=== PATIENT | female | born 1950 | race Caucasian/White ===

== ENCOUNTER → 2016-12-07 | Outpatient (CLI) | payer OTHER ==
[~2016-12-07] MED LIST: AMLO5TAB2 PO; ASPI-496 PO; ASPI-621 PO; CHOL100015 PO; CHRO200T9 PO; CYCL100C PO; CYCL1DRO EACHEYE; FISH400C3 PO; FURO-93 PO; HAIR, SKIN, NAILS PO; HYAL1CAP PO; HYDR-3241 PO; HYDR1TAB14 PO; LISI5TAB7 PO; LOSA25TA5 PO; MULT-516 PO; MULT-706 PO; OMEP20CA9 PO; PRAV10TA2 PO; PROM25SU34 RC; PROM25TA10 PO; PROM25VI5 PO; SENN1TAB67 PO; TIZA4CAP PO; UBID100C19 PO; VITA1TAB3 PO; VITAMIN PO; WARF5TAB PO; ZOLP10TA PO; [UNRECOGNIZED DRUG - OTHER] PO; magnesium PO
[2016-12-07 09:25] LABS: BLOOD UREA NITROGEN 27 mg/dL (7-18)
== END | disposition home or self-care (01) ==
LOC: LAB 08:37
PROVIDERS: ATTEND Internal Medicine
DX: Z01.818 Encounter for other preprocedural examination (principal)
CPT/HCPCS: 36415; 82565; 84520

== ENCOUNTER → 2016-12-10 | Outpatient (CLI) | payer OTHER ==
[~2016-12-10] MED LIST changes: +OMNIPAQUE 350 MG/ML, 100ML BOTTLE ONE
== END | disposition home or self-care (01) ==
LOC: RAD 11:24
PROVIDERS: ATTEND Internal Medicine
DX: R10.9 Unspecified abdominal pain (principal); Z94.0 Kidney transplant status
CPT/HCPCS: 74177; Q9967

== ENCOUNTER 2017-01-19 08:16 | Inpatient (IN) | payer OTHER ==
[2017-01-18 09:16] VITALS: BP 138/84
[2017-01-18 10:38] LABS: ASPARTATE AMINO TRANSFERASE 27 U/L (15-37); BLOOD UREA NITROGEN 33 mg/dL (7-18)
[~2017-01-19] VITALS: Ht 175.3 cm; Wt 79.6 kg
[~2017-01-19 08:16] MED LIST changes: -OMNIPAQUE 350 MG/ML, 100ML BOTTLE ONE
[2017-01-19] MEDS ORDERED: ALBUTEROL SULFATE 2.5 MG/3 ML NPPB PRN ×2 (08:30→17:30)
[2017-01-19] MEDS ORDERED: HYDROmorphone 1 MG/ML, 1ML IV PRN ×2 (08:30→17:30)
[2017-01-19] MEDS ORDERED: hydrALAzine 20 MG/ML, 1ML IV PRN ×2 (08:30→17:30)
[2017-01-19] MEDS ORDERED: OXYcodone 5 MG/5 ML ORAL.SOL UDC PO PRN ×2 (08:30→17:30)
[2017-01-19] MEDS ORDERED: LABETALOL 5MG/ML, 20ML IV PRN ×2 (08:30→17:30)
[2017-01-19] MEDS ORDERED: METOPROLOL 1 MG/ML, 5ML IV PRN ×2 (08:30→17:30)
[2017-01-19] MEDS ORDERED: ONDANSETRON 2MG/ML, 2ML IVPush PRN ×2 (08:30→17:30)
[2017-01-19] MEDS ORDERED: ACETAMINOPHEN 325 MG TABLET PO PRN (08:30)
[2017-01-19] MEDS ORDERED: LACTATED RINGERS 1,000 ML IV SCH (08:34)
[2017-01-19] MEDS ORDERED: ASPI-496 PO (08:50)
[2017-01-19] MEDS ORDERED: LOSA25TA5 PO (08:50)
[2017-01-19] MEDS ORDERED: SCOPOLAMINE PATCH, 1.5MG PATCH.TD72 TD ONE (09:00)
[2017-01-19] MEDS ORDERED: LIDOCAINE 1%, 2ML SQ PRN (09:00)
[2017-01-19] MEDS ORDERED: HYDROcodone/APAP 5/325 TABLET PO ONE (09:30)
[2017-01-19] MEDS ORDERED: FENTANYL PF 250 MCG/5ML ONE ×3 (09:57→16:32)
[2017-01-19] MEDS ORDERED: MIDAZOLAM 1 MG/ML, 2ML ONE ×3 (09:57→16:32)
[2017-01-19] MEDS ORDERED: GLYCOPYRROLATE 0.2MG/1ML ONE ×2 (10:23)
[2017-01-19] MEDS ORDERED: ETOMIDATE 20 MG/10 ML ONE (10:23)
[2017-01-19] MEDS ORDERED: PROPOFOL 10 MG/ML, 50ML ONE (10:23)
[2017-01-19] MEDS ORDERED: ROCURONIUM 10 MG/ML ONE (10:23)
[2017-01-19] MEDS ORDERED: METOPROLOL 1 MG/ML, 5ML ONE (10:23)
[2017-01-19] MEDS ORDERED: PROPOFOL 10 MG/ML, 20ML ONE (10:23)
[2017-01-19] MEDS ORDERED: ONDANSETRON 2MG/ML, 2ML ONE ×2 (10:23)
[2017-01-19] MEDS ORDERED: NEOSTIGMINE 1 MG/ML, 10ML ONE ×2 (10:23)
[2017-01-19] MEDS ORDERED: CEFOTETAN 1 GM ONE (10:23)
[2017-01-19] MEDS ORDERED: DEXAMETHASONE 4 MG/ML, 1ML ONE (10:23)
[2017-01-19] MEDS ORDERED: BUPIVACAINE/PF-EPI 0.5% 1:200K ONE (11:15)
[2017-01-19] MEDS ORDERED: BUPIVACAINE/PF-EPI 0.5% 1:200K INFIL ONE (11:41)
[2017-01-19] MEDS ORDERED: ACETAMINOPHEN 650 MG/20.3 ML UDC ONE (13:21)
[2017-01-19] MEDS ORDERED: OXYcodone 5 MG/5 ML ORAL.SOL UDC ONE (13:21)
[2017-01-19] MEDS ORDERED: FENTANYL PF 100 MCG/2ML ONE ×2 (13:21→13:48)
[2017-01-19] MEDS: FENTANYL PF 100 MCG/2ML IV PRN ×3 (13:24→13:55)
[2017-01-19] MEDS ORDERED: EPHEDRINE 50 MG/ML, 1ML ONE (14:15)
[2017-01-19] MEDS: EPHEDRINE 50 MG/ML, 1ML IVPush PRN ×2 (14:17→14:46)
[2017-01-19] MEDS ORDERED: PHENYLEPHRINE 20 MG in SODIUM CHLORIDE 0.9% 248 ML IV ONE ×2 (15:10→21:30)
[2017-01-19] MEDS ORDERED: ALBUMIN HUMAN 5% 500 ML ONE (15:14)
[2017-01-19 15:37] LABS: ASPARTATE AMINO TRANSFERASE 15 U/L (15-37); BLOOD UREA NITROGEN 24 mg/dL (7-18)
[2017-01-19] MEDS ORDERED: EPHEDRINE 50 MG/ML, 1ML IVPush PRN (17:30)
[2017-01-19] MEDS ORDERED: FENTANYL PF 100 MCG/2ML IV PRN (17:30)
[2017-01-19] MEDS ORDERED: HYDROmorphone PCA 30 MG/30 ML ONE (17:45)
[2017-01-19] MEDS ORDERED: HYDROmorphone 1 MG/ML, 1ML ONE (17:46)
[2017-01-19] MEDS ORDERED: HYDROmorphone PCA 30 MG/30 ML IV PRN ×2 (18:00→19:04)
[2017-01-19 18:08] LABS: BLOOD UREA NITROGEN 24 mg/dL (7-18)
[2017-01-19 18:11] LABS: ASPARTATE AMINO TRANSFERASE 36 U/L (15-37)
[2017-01-19] MEDS ORDERED: ONDANSETRON 2MG/ML, 2ML IV PRN (19:30)
[2017-01-19] MEDS ORDERED: morphine SULFATE 10 MG/ML, 1ML IV PRN (19:30)
[2017-01-19] MEDS ORDERED: ZOLPIDEM 10MG TABLET PO PRN (21:00)
[2017-01-19] MEDS: Cyclosporine (Restasis) 1 DROP EACHEYE SCH (21:00)
[2017-01-19] MEDS ORDERED: PROMETHAZINE 25MG TABLET PO PRN (21:00)
[2017-01-19] MEDS ORDERED: CHOLECALCIFEROL 50000 UNIT PO SCH (21:00)
[2017-01-19] MEDS ORDERED: TIZANIDINE 4MG TABLET PO PRN (21:00)
[2017-01-19] MEDS ORDERED: CYCLOSPORINE-MODIFIED (NEORAL) 100 MG CAPSULE PO SCH (21:00)
[2017-01-19] MEDS ORDERED: PHENYLEPHRINE 10 MG in SODIUM CHLORIDE 0.9% 249 ML IV SCH (21:20)
[2017-01-19] MEDS ORDERED: PHENYLEPHRINE 20 MG in SODIUM CHLORIDE 0.9% 248 ML IV SCH (21:30)
[2017-01-19] MEDS: CYCLOSPORINE-MODIFIED (NEORAL) 100 MG CAPSULE PO SCH (21:36)
[2017-01-19] MEDS: PHENYLEPHRINE 20 MG in SODIUM CHLORIDE 0.9% 248 ML IV SCH (21:44)
[2017-01-19] MEDS: PRAVASTATIN 20 MG TABLET PO SCH (22:31)
[2017-01-20] MEDS ORDERED: ZOLPIDEM 5MG TABLET ONE (00:51)
[2017-01-20 04:26] VITALS: BP 116/45
[2017-01-20 05:55] LABS: ASPARTATE AMINO TRANSFERASE 19 U/L (15-37); BLOOD UREA NITROGEN 23 mg/dL (7-18)
[2017-01-20] MEDS ORDERED: HYDROmorphone PCA 30 MG/30 ML IV PRN ×2 (06:00→10:49)
[2017-01-20] MEDS: FOLIC ACID HOMEMEDPO SCH (08:02)
[2017-01-20] MEDS: CHROMIUM HOMEMEDPO SCH (08:02)
[2017-01-20] MEDS: BIOT HOMEMEDPO SCH (08:02)
[2017-01-20] MEDS: [UNRECOGNIZED DRUG - OTHER] HOMEMEDPO SCH (08:02)
[2017-01-20] MEDS: MULTIVITS MIN HOMEMEDPO SCH (08:02)
[2017-01-20] MEDS: [UNRECOGNIZED DRUG - OTHER] PO SCH (08:03)
[2017-01-20] MEDS: FLAX PO SCH (08:03)
[2017-01-20] MEDS: OMEGA-3/FISH OIL CAPSULE PO SCH (08:03)
[2017-01-20] MEDS: UBIDECARENONE 300 MG HOMEMEDPO SCH (08:03)
[2017-01-20] MEDS: FISH OIL PO SCH (08:03)
[2017-01-20] MEDS: BORAGE PO SCH (08:03)
[2017-01-20] MEDS: MULTIVITAMIN 1 TABLET PO SCH (08:04)
[2017-01-20] MEDS: [UNRECOGNIZED DRUG - OTHER] PO SCH (08:04)
[2017-01-20] MEDS: MULTIVITS,STRESS FORMULA 1 TABLET PO SCH (08:04)
[2017-01-20] MEDS: OMEPRAZOLE 20 MG CAPSULE.DR PO SCH (08:52)
[2017-01-20] MEDS: CYCLOSPORINE-MODIFIED (NEORAL) 100 MG CAPSULE PO SCH ×2 (08:52→20:47)
[2017-01-20] MEDS ORDERED: SODIUM CHLORIDE 0.9% 1,000ML IVBOLUS ONE (09:00)
[2017-01-20] MEDS: Cyclosporine (Restasis) 1 DROP EACHEYE SCH ×2 (09:00→19:58)
[2017-01-20] MEDS ORDERED: PHENYLEPHRINE 10 MG/ML ONE (09:55)
[2017-01-20] MEDS ORDERED: LORazepam 2 MG/ML, 1ML ONE (10:38)
[2017-01-20] MEDS ORDERED: LORazepam 1MG TABLET PO PRN (11:00)
[2017-01-20] MEDS ORDERED: LORazepam 1MG TABLET PO ONE (11:00)
[2017-01-20] MEDS: D5%-0.45% NACL 1,000 ML IV SCH (11:03)
[2017-01-20] MEDS: ACETAMINOPHEN 650 MG SUPP PR SCH ×4 (11:59→21:17)
[2017-01-20] MEDS ORDERED: SODIUM CHLORIDE 0.9%, 500ML IVBOLUS ONE (17:00)
[2017-01-20] MEDS: PHENYLEPHRINE 20 MG in SODIUM CHLORIDE 0.9% 248 ML IV SCH (19:58)
[2017-01-20] MEDS: PRAVASTATIN 20 MG TABLET PO SCH (20:35)
[2017-01-21] VITALS (7 sets, daily range): BP systolic 100–139; BP diastolic 44–65
[2017-01-21] MEDS: D5%-0.45% NACL 1,000 ML IV SCH ×3 (03:32→23:29)
[2017-01-21] MEDS: ACETAMINOPHEN 650 MG SUPP PR SCH (03:37)
[2017-01-21 04:48] LABS: BLOOD UREA NITROGEN 15 mg/dL (7-18)
[2017-01-21] MEDS: PHENYLEPHRINE 20 MG in SODIUM CHLORIDE 0.9% 248 ML IV SCH (06:03)
[2017-01-21] MEDS: [UNRECOGNIZED DRUG - OTHER] HOMEMEDPO SCH (09:00)
[2017-01-21] MEDS: UBIDECARENONE 300 MG HOMEMEDPO SCH (09:00)
[2017-01-21] MEDS: CHROMIUM HOMEMEDPO SCH (09:00)
[2017-01-21] MEDS: FISH OIL PO SCH (09:00)
[2017-01-21] MEDS: BORAGE PO SCH (09:00)
[2017-01-21] MEDS: BIOT HOMEMEDPO SCH (09:00)
[2017-01-21] MEDS: Cyclosporine (Restasis) 1 DROP EACHEYE SCH ×2 (09:00→21:23)
[2017-01-21] MEDS: [UNRECOGNIZED DRUG - OTHER] PO SCH (09:00)
[2017-01-21] MEDS: [UNRECOGNIZED DRUG - OTHER] PO SCH (09:00)
[2017-01-21] MEDS: MULTIVITS MIN HOMEMEDPO SCH (09:00)
[2017-01-21] MEDS: FOLIC ACID HOMEMEDPO SCH (09:00)
[2017-01-21] MEDS: FLAX PO SCH (09:00)
[2017-01-21] MEDS: CYCLOSPORINE-MODIFIED (NEORAL) 100 MG CAPSULE PO SCH ×2 (09:49→21:23)
[2017-01-21] MEDS: OMEPRAZOLE 20 MG CAPSULE.DR PO SCH (09:49)
[2017-01-21] MEDS: ACETAMINOPHEN 325 MG TABLET PO SCH ×4 (09:50→21:28)
[2017-01-21] MEDS: OMEGA-3/FISH OIL CAPSULE PO SCH (09:50)
[2017-01-21] MEDS: MULTIVITS,STRESS FORMULA 1 TABLET PO SCH (09:50)
[2017-01-21] MEDS: MULTIVITAMIN 1 TABLET PO SCH (09:50)
[2017-01-21] MEDS ORDERED: HYDROmorphone PCA 30 MG/30 ML IV PRN (14:00)
[2017-01-21] MEDS: PRAVASTATIN 20 MG TABLET PO SCH (21:24)
[2017-01-22 04:00] VITALS: BP 145/66
[2017-01-22] MEDS: ACETAMINOPHEN 325 MG TABLET PO SCH (05:18)
[2017-01-22 06:08] LABS: BLOOD UREA NITROGEN 14 mg/dL (7-18)
[2017-01-22 06:14] LABS: ASPARTATE AMINO TRANSFERASE 14 U/L (15-37)
[2017-01-22] MEDS: BORAGE PO SCH (07:55)
[2017-01-22] MEDS: FLAX PO SCH (07:55)
[2017-01-22] MEDS: [UNRECOGNIZED DRUG - OTHER] HOMEMEDPO SCH (07:55)
[2017-01-22] MEDS: UBIDECARENONE 300 MG HOMEMEDPO SCH (07:55)
[2017-01-22] MEDS: MULTIVITS MIN HOMEMEDPO SCH (07:55)
[2017-01-22] MEDS: FOLIC ACID HOMEMEDPO SCH (07:55)
[2017-01-22] MEDS: Cyclosporine (Restasis) 1 DROP EACHEYE SCH ×2 (07:55→22:05)
[2017-01-22] MEDS: [UNRECOGNIZED DRUG - OTHER] PO SCH (07:55)
[2017-01-22] MEDS: FISH OIL PO SCH (07:55)
[2017-01-22] MEDS: CHROMIUM HOMEMEDPO SCH (07:55)
[2017-01-22] MEDS: BIOT HOMEMEDPO SCH (07:55)
[2017-01-22] MEDS: [UNRECOGNIZED DRUG - OTHER] PO SCH (07:56)
[2017-01-22] MEDS: MULTIVITAMIN 1 TABLET PO SCH (08:44)
[2017-01-22] MEDS: OMEPRAZOLE 20 MG CAPSULE.DR PO SCH (08:44)
[2017-01-22] MEDS: OMEGA-3/FISH OIL CAPSULE PO SCH (08:44)
[2017-01-22] MEDS: CYCLOSPORINE-MODIFIED (NEORAL) 100 MG CAPSULE PO SCH ×2 (08:44→22:04)
[2017-01-22] MEDS ORDERED: DOCUSATE 50 MG/5 ML, 10ML UDC PO PRN (09:00)
[2017-01-22] MEDS ORDERED: METHYLNALTREXONE 12 MG/0.6 ML SQ SCH (09:00)
[2017-01-22 09:22] VITALS: BP 166/84
[2017-01-22] MEDS: OXYcodone IR 5MG TABLET PO PRN ×4 (10:22→23:16)
[2017-01-22 15:22] VITALS: BP 152/81
[2017-01-22 22:02] VITALS: BP 163/85
[2017-01-22] MEDS: PRAVASTATIN 20 MG TABLET PO SCH (22:04)
[2017-01-23] MEDS: OXYcodone IR 5MG TABLET PO PRN ×3 (04:21→13:12)
[2017-01-23 04:36] LABS: BLOOD UREA NITROGEN 14 mg/dL (7-18)
[2017-01-23 04:39] VITALS: BP 171/95
[2017-01-23 07:38] VITALS: BP 160/91
[2017-01-23] MEDS: Cyclosporine (Restasis) 1 DROP EACHEYE SCH (09:00)
[2017-01-23] MEDS ORDERED: LOSARTAN 25MG TABLET PO SCH (09:00)
[2017-01-23] MEDS: MULTIVITAMIN 1 TABLET PO SCH (09:43)
[2017-01-23] MEDS: CYCLOSPORINE-MODIFIED (NEORAL) 100 MG CAPSULE PO SCH (09:44)
[2017-01-23] MEDS: OMEPRAZOLE 20 MG CAPSULE.DR PO SCH (09:45)
[2017-01-23] MEDS: OMEGA-3/FISH OIL CAPSULE PO SCH (09:45)
[2017-01-23] MEDS: [UNRECOGNIZED DRUG - OTHER] HOMEMEDPO SCH (09:47)
[2017-01-23] MEDS: UBIDECARENONE 300 MG HOMEMEDPO SCH (09:47)
[2017-01-23] MEDS: [UNRECOGNIZED DRUG - OTHER] PO SCH (09:47)
[2017-01-23] MEDS: FOLIC ACID HOMEMEDPO SCH (09:47)
[2017-01-23] MEDS: BORAGE PO SCH (09:47)
[2017-01-23] MEDS: FISH OIL PO SCH (09:47)
[2017-01-23] MEDS: [UNRECOGNIZED DRUG - OTHER] PO SCH (09:47)
[2017-01-23] MEDS: BIOT HOMEMEDPO SCH (09:47)
[2017-01-23] MEDS: FLAX PO SCH (09:47)
[2017-01-23] MEDS: MULTIVITS MIN HOMEMEDPO SCH (09:47)
[2017-01-23] MEDS: CHROMIUM HOMEMEDPO SCH (09:48)
[2017-01-23 09:59] VITALS: BP 167/84
[2017-01-23 12:50] VITALS: BP 171/98
[2017-01-25] MEDS ORDERED: ERGOCALCIFEROL 50,000 UNIT CAPSULE PO SCH (09:00)
== END 2017-01-23 14:05 | disposition home or self-care (01) | DRG 336 ==
LOC: ORIP 08:16 → EDSTATUS 10:00 → CCU 18:46 → 4NOR 01-22 09:19
PROVIDERS: ADMIT Surgery; ATTEND Surgery
PROC: 0DN84ZZ Release Small Intestine, Percutaneous Endoscopic Approach (ICD-10-PCS; 2017-01-19)
PROC: 30233L1 Transfusion of Nonautologous Fresh Plasma into Peripheral Vein, Percutaneous Approach (ICD-10-PCS; 2017-01-19)
PROC: 30233N1 Transfusion of Nonautologous Red Blood Cells into Peripheral Vein, Percutaneous Approach (ICD-10-PCS; 2017-01-19)
PROC: 30233K1 Transfusion of Nonautologous Frozen Plasma into Peripheral Vein, Percutaneous Approach (ICD-10-PCS; 2017-01-19)
PROC: 0DNF4ZZ Release Right Large Intestine, Percutaneous Endoscopic Approach (ICD-10-PCS; principal; 2017-01-19 10:00)
PROC: 0W3F4ZZ Control Bleeding in Abdominal Wall, Percutaneous Endoscopic Approach (ICD-10-PCS; 2017-01-20)
PROC: 3E1M38Z Irrigation of Peritoneal Cavity using Irrigating Substance, Percutaneous Approach (ICD-10-PCS; 2017-01-20)
DX: K50.912 Crohn's disease, unspecified, with intestinal obstruction (principal); Z94.0 Kidney transplant status; K91.870 Postprocedural hematoma of a digestive system organ or structure following a digestive system procedure; D62 Acute posthemorrhagic anemia; E78.5 Hyperlipidemia, unspecified; I12.9 Hypertensive chronic kidney disease with stage 1 through stage 4 chronic kidney disease, or unspecified chronic kidney disease; D69.6 Thrombocytopenia, unspecified; N18.3 Chronic kidney disease, stage 3 (moderate); K66.0 Peritoneal adhesions (postprocedural) (postinfection); I95.9 Hypotension, unspecified; K21.9 Gastro-esophageal reflux disease without esophagitis; M19.90 Unspecified osteoarthritis, unspecified site; Z82.49 Family history of ischemic heart disease and other diseases of the circulatory system; Z88.8 Allergy status to other drugs, medicaments and biological substances; Z79.899 Other long term (current) drug therapy; Z90.49 Acquired absence of other specified parts of digestive tract; Z83.3 Family history of diabetes mellitus; Z80.3 Family history of malignant neoplasm of breast; Z86.73 Personal history of transient ischemic attack (TIA), and cerebral infarction without residual deficits; Z80.0 Family history of malignant neoplasm of digestive organs
CPT/HCPCS: 36415; 71010; 76705; 80048; 80053; 85014; 85018; 85025; 85027; 85610; 85730; 86850; 86900; 86923; 87081; 93005; C1729; J1100; J1170; J2250; J2405; J2704; J2710; J3010; J3490; J7502; P9045; J2270; J2370; J7030; J7040; J7050; P9016; P9017; S0074

== ENCOUNTER → 2017-02-01 | Outpatient (CLI) | payer OTHER | END | disposition home or self-care (01) | LOC: CFH 15:31 | PROVIDERS: ATTEND Surgery | DX: R19.09 Other intra-abdominal and pelvic swelling, mass and lump (principal); Z90.49 Acquired absence of other specified parts of digestive tract; Z90.5 Acquired absence of kidney | CPT/HCPCS: 76700 ==

== ENCOUNTER → 2017-02-03 | Outpatient (CLI) | payer OTHER | END | disposition home or self-care (01) | LOC: LAB 10:53 | PROVIDERS: ATTEND Surgery | DX: N39.0 Urinary tract infection, site not specified (principal); D64.9 Anemia, unspecified; N25.81 Secondary hyperparathyroidism of renal origin; E78.00 Pure hypercholesterolemia, unspecified; Z94.0 Kidney transplant status | CPT/HCPCS: 36415; 85025; 87077; 87086 ==

== ENCOUNTER → 2017-03-07 | Outpatient (CLI) | payer OTHER | END | disposition home or self-care (01) | LOC: LAB 11:43 | PROVIDERS: ATTEND Internal Medicine Nephrology | DX: N39.0 Urinary tract infection, site not specified (principal); N25.81 Secondary hyperparathyroidism of renal origin; D64.9 Anemia, unspecified; Z94.0 Kidney transplant status | CPT/HCPCS: 81001; 87077; 87086 ==

== ENCOUNTER → 2017-03-08 | Outpatient (CLI) | payer OTHER ==
[2017-03-08 08:39] LABS: ASPARTATE AMINO TRANSFERASE 18 U/L (15-37); BLOOD UREA NITROGEN 31 mg/dL (7-18)
== END | disposition home or self-care (01) ==
LOC: LAB 07:29
PROVIDERS: ATTEND Specialist
DX: M17.11 Unilateral primary osteoarthritis, right knee (principal); Z92.25 Personal history of immunosuppression therapy
CPT/HCPCS: 36415; 80053

== ENCOUNTER → 2017-04-07 | Outpatient (CLI) | payer OTHER | END | disposition home or self-care (01) | LOC: CFH 12:35 | PROVIDERS: ATTEND Internal Medicine | DX: Z13.820 Encounter for screening for osteoporosis (principal); M81.0 Age-related osteoporosis without current pathological fracture | CPT/HCPCS: 77080 ==

== ENCOUNTER → 2017-07-20 | Outpatient (CLI) | payer OTHER ==
[2017-07-20 07:24] LABS: HEMATOCRIT 35.5 % (34.6-47.8); HEMOGLOBIN 12.1 g/dL (11.7-16.4)
== END ==
LOC: LAB 07:01
PROVIDERS: ATTEND Internal Medicine
DX: I12.9 Hypertensive chronic kidney disease with stage 1 through stage 4 chronic kidney disease, or unspecified chronic kidney disease (principal); N18.3 Chronic kidney disease, stage 3 (moderate); E03.9 Hypothyroidism, unspecified; E78.00 Pure hypercholesterolemia, unspecified; M81.0 Age-related osteoporosis without current pathological fracture
CPT/HCPCS: 36415; 80061; 83540; 83550; 84443; 85025

== ENCOUNTER → 2017-08-04 | Outpatient (CLI) | payer OTHER | END | disposition home or self-care (01) | LOC: CFH 07:44 | PROVIDERS: ATTEND Internal Medicine | DX: Z12.31 Encounter for screening mammogram for malignant neoplasm of breast (principal) | CPT/HCPCS: G0202 ==

== ENCOUNTER → 2017-08-08 | Outpatient (CLI) | payer OTHER ==
[2017-08-08 07:58] LABS: HEMATOCRIT 34.6 % (34.6-47.8); HEMOGLOBIN 11.8 g/dL (11.7-16.4); WHITE BLOOD COUNT 4.4 x10^3/uL (3.4-10)
[2017-08-08 08:10] LABS: ASPARTATE AMINO TRANSFERASE 14 U/L (15-37)
[2017-08-08 08:14] LABS: BLOOD UREA NITROGEN 33 mg/dL (7-18)
== END | disposition home or self-care (01) ==
LOC: LAB 07:40
PROVIDERS: ATTEND Nurse Practitioner
DX: N39.0 Urinary tract infection, site not specified (principal); N25.81 Secondary hyperparathyroidism of renal origin; E78.00 Pure hypercholesterolemia, unspecified; Z94.0 Kidney transplant status; D64.9 Anemia, unspecified
CPT/HCPCS: 36415; 80053; 80158; 81003; 82150; 82570; 83735; 84100; 84156; 85025

== ENCOUNTER → 2017-09-01 | Outpatient (CLI) | payer OTHER ==
[2017-09-01 07:47] LABS: ALANINE AMINOTRANSFERASE 22 U/L (12-78); ALBUMIN 3.7 g/dL (3.4-5.0); ANION GAP 8 mmol/L (5-15); CALCIUM 8.8 mg/dL (8.5-10.1); CHLORIDE 109 mmol/L (98-107); CREATININE 1.88 mg/dL (0.55-1.02)
[2017-09-01 07:50] LABS: ALKALINE PHOSPHATASE 43 U/L (45-117); BILIRUBIN,TOTAL 0.3 mg/dL (0.2-1.0); TOTAL PROTEIN 7.3 g/dL (6.4-8.2)
== END ==
LOC: LAB 07:22
PROVIDERS: ATTEND Internal Medicine
DX: M81.0 Age-related osteoporosis without current pathological fracture (principal)
CPT/HCPCS: 36415; 80053; 82306

== ENCOUNTER → 2017-09-06 | Outpatient (CLI) | payer OTHER ==
[2017-09-06 07:34] LABS: BASOPHILS # (AUTO) 0.02 x10^3/uL (0-0.1); BASOPHILS % (AUTO) 1 % (0-1); EOSINOPHILS # (AUTO) 0.07 x10^3/uL (0-0.4); EOSINOPHILS % (AUTO) 1 % (1-7); LYMPHOCYTES % (AUTO) 30 % (22-44); MD NO; MEAN CORPUSCULAR HEMOGLOBIN 33.1 pg (27.0-34.8); MEAN CORPUSCULAR HGB CONC 33.9 g/dL (32.4-35.8); MEAN CORPUSCULAR VOLUME 97.6 fL (80-100); MEAN PLATELET VOLUME 7.2 fL (7.4-10.4); MONOCYTES # (AUTO) 0.36 x10^3/uL (0.2-0.8); MONOCYTES % (AUTO) 8 % (2-9); NEUTROPHILS # (AUTO) 2.91 x10^3/uL (1.8-6.8); NEUTROPHILS % (AUTO) 61 % (42-75); PLATELET COUNT 264 x10^3/uL (130-400); RED BLOOD COUNT 3.63 x10^6/uL (3.82-5.3); RED CELL DISTRIBUTION WIDTH 13.7 % (9.6-15.2)
[2017-09-06 07:48] LABS: ALBUMIN 3.7 g/dL (3.4-5.0); ANION GAP 7 mmol/L (5-15); CHLORIDE 108 mmol/L (98-107)
[2017-09-06 07:51] LABS: ALANINE AMINOTRANSFERASE 24 U/L (12-78); ALKALINE PHOSPHATASE 39 U/L (45-117); BILIRUBIN,TOTAL 0.5 mg/dL (0.2-1.0); CREATININE 2.09 mg/dL (0.55-1.02); TOTAL PROTEIN 7.2 g/dL (6.4-8.2)
[2017-09-06 07:53] LABS: CULTURE INDICATED? YES; MICROSCOPIC AUTO
== END ==
LOC: LAB 07:10
PROVIDERS: ATTEND Internal Medicine Nephrology
DX: N39.0 Urinary tract infection, site not specified (principal); E78.00 Pure hypercholesterolemia, unspecified; Z94.0 Kidney transplant status
CPT/HCPCS: 36415; 80053; 80158; 81001; 84100; 85025; 87086

== ENCOUNTER → 2017-09-28 | Outpatient (CLI) | payer OTHER ==
[2017-09-28 07:40] LABS: ALBUMIN 3.8 g/dL (3.4-5.0); ANION GAP 9 mmol/L (5-15); CALCIUM 8.4 mg/dL (8.5-10.1); CHLORIDE 103 mmol/L (98-107); CREATININE 1.84 mg/dL (0.55-1.02)
== END ==
LOC: LAB 06:58
PROVIDERS: ATTEND Internal Medicine Nephrology
DX: Z51.81 Encounter for therapeutic drug level monitoring (principal); Z94.0 Kidney transplant status
CPT/HCPCS: 36415; 80069; 80158

== ENCOUNTER → 2018-02-22 | Outpatient (CLI) | payer OTHER ==
[2018-02-22 08:07] LABS: ALBUMIN 3.6 g/dL (3.4-5.0); CALCIUM 8.8 mg/dL (8.5-10.1)
[2018-02-22 08:11] LABS: ALANINE AMINOTRANSFERASE 23 U/L (12-78); ALKALINE PHOSPHATASE 52 U/L (45-117); BILIRUBIN,TOTAL 0.5 mg/dL (0.2-1.0); TOTAL PROTEIN 6.9 g/dL (6.4-8.2)
[2018-02-22 08:31] LABS: ANION GAP 8 mmol/L (5-15); CHLORIDE 107 mmol/L (98-107)
== END | disposition home or self-care (01) ==
LOC: LAB 07:20
PROVIDERS: ATTEND Specialist
DX: M81.0 Age-related osteoporosis without current pathological fracture (principal)
CPT/HCPCS: 36415; 80053

== ENCOUNTER → 2018-05-16 | Outpatient (CLI) | payer OTHER ==
[~2018-05-16] MED LIST changes: -AMLO5TAB2 PO; +AMLO5TAB7 PO; -LOSA25TA5 PO; +LOSA25TA6 PO; +UBID100C10 PO; -UBID100C19 PO
[2018-05-16 07:50] LABS: CALCIUM 9.5 mg/dL (8.5-10.1)
[2018-05-16 07:56] LABS: ALBUMIN 3.9 g/dL (3.4-5.0); ANION GAP 8 mmol/L (5-15); CALCIUM 9.3 mg/dL (8.5-10.1); CHLORIDE 104 mmol/L (98-107); CREATININE 2.24 mg/dL (0.55-1.02); IRON LEVEL 87 mcg/dL (50-170)
[2018-05-16 08:01] LABS: % IRON SATURATION 28 % (20-55); TOTAL IRON BINDING CAPACITY 308 mcg/dL (250-450); TRANSFERRIN 246 mg/dL (200-360)
[2018-05-16 08:03] LABS: HEMOGLOBIN A1C 5.5 % (4.2-6.3)
[2018-05-16 08:18] LABS: CREATININE,URINE RANDOM 36.5 mg/dL
[2018-05-16 08:25] LABS: CULTURE INDICATED? NO; MICROSCOPIC NOT IND
[2018-05-16 08:47] LABS: BASOPHILS # (AUTO) 0.03 x10^3/uL (0-0.1); BASOPHILS % (AUTO) 1 % (0-1); EOSINOPHILS # (AUTO) 0.22 x10^3/uL (0-0.4); EOSINOPHILS % (AUTO) 4 % (1-7); LYMPHOCYTES # (AUTO) 1.85 x10^3/uL (1-3.4); LYMPHOCYTES % (AUTO) 33 % (22-44); MD NO; MEAN CORPUSCULAR HEMOGLOBIN 32.3 pg (27.0-34.8); MEAN CORPUSCULAR HGB CONC 33.7 g/dL (32.4-35.8); MEAN CORPUSCULAR VOLUME 95.8 fL (80-100); MEAN PLATELET VOLUME 7.7 fL (7.4-10.4); MONOCYTES # (AUTO) 0.36 x10^3/uL (0.2-0.8); MONOCYTES % (AUTO) 6 % (2-9); NEUTROPHILS # (AUTO) 3.15 x10^3/uL (1.8-6.8); NEUTROPHILS % (AUTO) 56 % (42-75); PLATELET COUNT 358 x10^3/uL (130-400); RED BLOOD COUNT 3.81 x10^6/uL (3.82-5.3); RED CELL DISTRIBUTION WIDTH 13.2 % (9.6-15.2)
[2018-05-16 09:40] LABS: CHOL/HDL RATIO 2.2
== END | disposition home or self-care (01) ==
LOC: LAB 07:07
PROVIDERS: ATTEND Internal Medicine Nephrology
DX: I12.9 Hypertensive chronic kidney disease with stage 1 through stage 4 chronic kidney disease, or unspecified chronic kidney disease (principal); N18.3 Chronic kidney disease, stage 3 (moderate); N39.0 Urinary tract infection, site not specified; N25.81 Secondary hyperparathyroidism of renal origin; Z94.0 Kidney transplant status; E78.00 Pure hypercholesterolemia, unspecified; D64.9 Anemia, unspecified
CPT/HCPCS: 36415; 80061; 80069; 80158; 81003; 82306; 82310; 82570; 82728; 83036; 83540; 83550; 83735; 83970; 84156; 84466; 84550; 85025

== ENCOUNTER → 2018-05-31 | Outpatient (CLI) | payer OTHER ==
[2018-05-31 08:05] LABS: ALBUMIN 3.6 g/dL (3.4-5.0); ANION GAP 8 mmol/L (5-15); CALCIUM 8.9 mg/dL (8.5-10.1); CHLORIDE 105 mmol/L (98-107); CREATININE 1.58 mg/dL (0.55-1.02)
== END | disposition home or self-care (01) ==
LOC: LAB 07:19
PROVIDERS: ATTEND Internal Medicine
DX: K86.1 Other chronic pancreatitis (principal); N18.3 Chronic kidney disease, stage 3 (moderate); Z86.73 Personal history of transient ischemic attack (TIA), and cerebral infarction without residual deficits; Z85.828 Personal history of other malignant neoplasm of skin; Z94.0 Kidney transplant status
CPT/HCPCS: 36415; 80069; 80158; 82656

== ENCOUNTER → 2018-06-26 | Outpatient (CLI) | payer OTHER | END | disposition home or self-care (01) | LOC: CFH 07:33 | PROVIDERS: ATTEND Internal Medicine | DX: K86.2 Cyst of pancreas (principal); Q24.8 Other specified congenital malformations of heart; N28.9 Disorder of kidney and ureter, unspecified | CPT/HCPCS: 74181 ==

== ENCOUNTER → 2018-09-06 | Outpatient (CLI) | payer OTHER ==
[~2018-09-06] MED LIST changes: +AMLO-150 PO; -AMLO5TAB7 PO; -ASPI-621 PO; +ASPI81TA45 PO; +LOSA25TA25 PO; -LOSA25TA6 PO
[2018-09-06 07:33] LABS: ALANINE AMINOTRANSFERASE 19 U/L (12-78); ALBUMIN 3.7 g/dL (3.4-5.0); ANION GAP 8 mmol/L (5-15); CHLORIDE 104 mmol/L (98-107)
[2018-09-06 07:36] LABS: ALKALINE PHOSPHATASE 47 U/L (45-117); BILIRUBIN,TOTAL 0.4 mg/dL (0.2-1.0); CREATININE 1.95 mg/dL (0.55-1.02); TOTAL PROTEIN 6.9 g/dL (6.4-8.2)
== END | disposition home or self-care (01) ==
LOC: LAB 07:07
PROVIDERS: ATTEND Specialist
DX: M81.0 Age-related osteoporosis without current pathological fracture (principal)
CPT/HCPCS: 36415; 80053

== ENCOUNTER → 2018-10-31 | Outpatient (CLI) | payer OTHER ==
[2018-10-31 07:46] LABS: BASOPHILS # (AUTO) 0.03 x10^3/uL (0-0.1); BASOPHILS % (AUTO) 1 % (0-1); EOSINOPHILS # (AUTO) 0.08 x10^3/uL (0-0.4); EOSINOPHILS % (AUTO) 2 % (1-7); LYMPHOCYTES # (AUTO) 1.46 x10^3/uL (1-3.4); LYMPHOCYTES % (AUTO) 33 % (22-44); MD NO; MEAN CORPUSCULAR HEMOGLOBIN 31.9 pg (27.0-34.8); MEAN CORPUSCULAR HGB CONC 33.1 g/dL (32.4-35.8); MEAN CORPUSCULAR VOLUME 96.4 fL (80-100); MEAN PLATELET VOLUME 7.3 fL (7.4-10.4); MONOCYTES # (AUTO) 0.45 x10^3/uL (0.2-0.8); MONOCYTES % (AUTO) 10 % (2-9); NEUTROPHILS # (AUTO) 2.38 x10^3/uL (1.8-6.8); NEUTROPHILS % (AUTO) 54 % (42-75); PLATELET COUNT 345 x10^3/uL (130-400); RED CELL DISTRIBUTION WIDTH 13.3 % (9.6-15.2)
[2018-10-31 08:02] LABS: CHLORIDE 107 mmol/L (98-107)
[2018-10-31 08:06] LABS: ALBUMIN 3.7 g/dL (3.4-5.0); ANION GAP 8 mmol/L (5-15); CALCIUM 7.9 mg/dL (8.5-10.1); CREATININE 1.74 mg/dL (0.55-1.02)
[2018-10-31 08:41] LABS: MICROSCOPIC NOT IND
[2018-10-31 08:47] LABS: CULTURE INDICATED? NO
[2018-10-31 08:57] LABS: CREATININE,URINE RANDOM 43.4 mg/dL
[2018-10-31 12:22] LABS: HEMOGLOBIN A1C 5.5 % (4.2-6.3)
== END | disposition home or self-care (01) ==
LOC: LAB 07:14
PROVIDERS: ATTEND Internal Medicine Nephrology
DX: N18.3 Chronic kidney disease, stage 3 (moderate) (principal); Z94.0 Kidney transplant status
CPT/HCPCS: 36415; 80069; 80158; 81003; 82570; 83036; 83735; 84156; 84550; 85025

== ENCOUNTER → 2019-01-23 | Outpatient (CLI) | payer OTHER ==
[2019-01-23 07:22] LABS: BASOPHILS # (AUTO) 0.02 x10^3/uL (0-0.1); BASOPHILS % (AUTO) 0 % (0-1); EOSINOPHILS # (AUTO) 0.14 x10^3/uL (0-0.4); EOSINOPHILS % (AUTO) 2 % (1-7); LYMPHOCYTES # (AUTO) 2.09 x10^3/uL (1-3.4); LYMPHOCYTES % (AUTO) 35 % (22-44); MD NO; MEAN CORPUSCULAR HEMOGLOBIN 32.2 pg (27.0-34.8); MEAN CORPUSCULAR HGB CONC 32.8 g/dL (32.4-35.8); MEAN CORPUSCULAR VOLUME 98.4 fL (80-100); MEAN PLATELET VOLUME 7.1 fL (7.4-10.4); MONOCYTES # (AUTO) 0.43 x10^3/uL (0.2-0.8); MONOCYTES % (AUTO) 7 % (2-9); NEUTROPHILS # (AUTO) 3.26 x10^3/uL (1.8-6.8); NEUTROPHILS % (AUTO) 55 % (42-75); PLATELET COUNT 288 x10^3/uL (130-400); RED BLOOD COUNT 3.65 x10^6/uL (3.82-5.3); RED CELL DISTRIBUTION WIDTH 13.6 % (9.6-15.2)
[2019-01-23 07:28] LABS: % IRON SATURATION 24 % (20-55); ALBUMIN 3.6 g/dL (3.4-5.0); ANION GAP 7 mmol/L (5-15); CALCIUM 8.7 mg/dL (8.5-10.1); CHLORIDE 106 mmol/L (98-107); CREATININE 2.43 mg/dL (0.55-1.02); IRON LEVEL 65 mcg/dL (50-170); TOTAL IRON BINDING CAPACITY 269 mcg/dL (250-450)
[2019-01-23 08:00] LABS: MICROSCOPIC NOT IND
[2019-01-23 08:02] LABS: CULTURE INDICATED? NO
[2019-01-23 08:24] LABS: CREATININE,URINE RANDOM 56.1 mg/dL
== END | disposition home or self-care (01) ==
LOC: LAB 06:51
PROVIDERS: ATTEND Internal Medicine Nephrology
DX: E55.9 Vitamin D deficiency, unspecified (principal); N25.81 Secondary hyperparathyroidism of renal origin; D63.1 Anemia in chronic kidney disease; N18.3 Chronic kidney disease, stage 3 (moderate)
CPT/HCPCS: 36415; 80069; 80158; 81003; 82306; 82570; 82728; 83540; 83550; 83735; 83970; 84156; 84550; 85025

== ENCOUNTER → 2019-01-23 | Outpatient (CLI) | payer OTHER | END | disposition home or self-care (01) | LOC: CFH 07:51 | PROVIDERS: ATTEND Internal Medicine | DX: M81.0 Age-related osteoporosis without current pathological fracture (principal) | CPT/HCPCS: 77080 ==

== ENCOUNTER → 2019-01-31 | Outpatient (CLI) | payer OTHER | END | disposition home or self-care (01) | LOC: CFH 07:29 | PROVIDERS: ATTEND Internal Medicine | DX: Z12.31 Encounter for screening mammogram for malignant neoplasm of breast (principal); Z91.041 Radiographic dye allergy status; Z88.8 Allergy status to other drugs, medicaments and biological substances | CPT/HCPCS: 77063; 77067 ==

== ENCOUNTER 2019-02-06 10:43 | Outpatient (CLI) | payer OTHER ==
[2019-02-06 11:15] LABS: ANION GAP 12 mmol/L (5-15); CALCIUM 10.3 mg/dL (8.5-10.1); CHLORIDE 101 mmol/L (98-107); CREATININE 1.93 mg/dL (0.55-1.02)
== END 2019-02-06 23:59 | disposition home or self-care (01) ==
LOC: LAB 10:43
PROVIDERS: ATTEND Internal Medicine
DX: E03.9 Hypothyroidism, unspecified (principal); N18.4 Chronic kidney disease, stage 4 (severe); R10.11 Right upper quadrant pain
CPT/HCPCS: 36415; 80048; 84443; 86301

== ENCOUNTER → 2019-03-06 | Outpatient (CLI) | payer OTHER ==
[2019-03-06 07:48] LABS: BASOPHILS # (AUTO) 0.03 x10^3/uL (0-0.1); BASOPHILS % (AUTO) 1 % (0-1); EOSINOPHILS # (AUTO) 0.17 x10^3/uL (0-0.4); EOSINOPHILS % (AUTO) 4 % (1-7); LYMPHOCYTES # (AUTO) 1.68 x10^3/uL (1-3.4); LYMPHOCYTES % (AUTO) 37 % (22-44); MD NO; MEAN CORPUSCULAR HEMOGLOBIN 32.2 pg (27.0-34.8); MEAN CORPUSCULAR HGB CONC 32.7 g/dL (32.4-35.8); MEAN CORPUSCULAR VOLUME 98.3 fL (80-100); MEAN PLATELET VOLUME 7.6 fL (7.4-10.4); MONOCYTES # (AUTO) 0.34 x10^3/uL (0.2-0.8); MONOCYTES % (AUTO) 7 % (2-9); NEUTROPHILS # (AUTO) 2.36 x10^3/uL (1.8-6.8); NEUTROPHILS % (AUTO) 52 % (42-75); PLATELET COUNT 285 x10^3/uL (130-400); RED BLOOD COUNT 3.55 x10^6/uL (3.82-5.3); RED CELL DISTRIBUTION WIDTH 13.7 % (9.6-15.2)
[2019-03-06 07:57] LABS: MICROSCOPIC NOT IND
[2019-03-06 07:58] LABS: ANION GAP 10 mmol/L (5-15); CHLORIDE 105 mmol/L (98-107); CREATININE 2.44 mg/dL (0.55-1.02)
[2019-03-06 08:14] LABS: CREATININE,URINE RANDOM 72.4 mg/dL
[2019-03-06 08:33] LABS: HEMOGLOBIN A1C 5.4 % (4.2-6.3)
== END | disposition home or self-care (01) ==
LOC: LAB 07:21
PROVIDERS: ATTEND Internal Medicine Nephrology
DX: I12.9 Hypertensive chronic kidney disease with stage 1 through stage 4 chronic kidney disease, or unspecified chronic kidney disease (principal); N18.3 Chronic kidney disease, stage 3 (moderate); E55.9 Vitamin D deficiency, unspecified; N25.81 Secondary hyperparathyroidism of renal origin; E78.00 Pure hypercholesterolemia, unspecified; E79.0 Hyperuricemia without signs of inflammatory arthritis and tophaceous disease; D64.9 Anemia, unspecified; Z94.0 Kidney transplant status
CPT/HCPCS: 36415; 80069; 81003; 82306; 82310; 82570; 83036; 83735; 83970; 84156; 84550; 85025

== ENCOUNTER 2019-03-13 07:19 | Outpatient (CLI) | payer OTHER ==
[2019-03-13 07:45] LABS: ALANINE AMINOTRANSFERASE 21 U/L (12-78); ALBUMIN 3.8 g/dL (3.4-5.0); ANION GAP 7 mmol/L (5-15); CALCIUM 8.8 mg/dL (8.5-10.1); CHLORIDE 105 mmol/L (98-107); CREATININE 1.89 mg/dL (0.55-1.02)
[2019-03-13 07:49] LABS: ALKALINE PHOSPHATASE 45 U/L (45-117); BILIRUBIN,TOTAL 0.5 mg/dL (0.2-1.0); TOTAL PROTEIN 7.1 g/dL (6.4-8.2)
== END 2019-03-13 23:59 | disposition home or self-care (01) ==
LOC: LAB 07:19
PROVIDERS: ATTEND Internal Medicine
DX: M81.0 Age-related osteoporosis without current pathological fracture (principal)
CPT/HCPCS: 36415; 80053

== ENCOUNTER 2019-07-17 07:05 | Outpatient (CLI) | payer OTHER ==
[~2019-07-17 07:05] MED LIST changes: -HYDR1TAB14 PO; +HYDR1TAB15 PO
[2019-07-17 07:25] LABS: BASOPHILS # (AUTO) 0.03 x10^3/uL (0-0.1); BASOPHILS % (AUTO) 1 % (0-1); EOSINOPHILS # (AUTO) 0.28 x10^3/uL (0-0.4); EOSINOPHILS % (AUTO) 6 % (1-7); LYMPHOCYTES # (AUTO) 2.17 x10^3/uL (1-3.4); LYMPHOCYTES % (AUTO) 45 % (22-44); MD NO; MEAN CORPUSCULAR HEMOGLOBIN 32.8 pg (27.0-34.8); MEAN CORPUSCULAR HGB CONC 32.3 g/dL (32.4-35.8); MEAN CORPUSCULAR VOLUME 101.6 fL (80-100); MEAN PLATELET VOLUME 7.6 fL (7.4-10.4); MONOCYTES # (AUTO) 0.36 x10^3/uL (0.2-0.8); MONOCYTES % (AUTO) 7 % (2-9); NEUTROPHILS # (AUTO) 2.02 x10^3/uL (1.8-6.8); NEUTROPHILS % (AUTO) 42 % (42-75); PLATELET COUNT 292 x10^3/uL (130-400); RED BLOOD COUNT 3.19 x10^6/uL (3.82-5.3); RED CELL DISTRIBUTION WIDTH 16.3 % (9.6-15.2)
[2019-07-17 07:37] LABS: ANION GAP 8 mmol/L (5-15); CALCIUM 9.1 mg/dL (8.5-10.1); CHLORIDE 109 mmol/L (98-107); CREATININE 1.72 mg/dL (0.55-1.02)
== END 2019-07-17 23:59 | disposition home or self-care (01) ==
LOC: LAB 07:05
PROVIDERS: ATTEND Internal Medicine
DX: D50.9 Iron deficiency anemia, unspecified (principal); E03.9 Hypothyroidism, unspecified; N18.4 Chronic kidney disease, stage 4 (severe); R10.11 Right upper quadrant pain
CPT/HCPCS: 36415; 80048; 84443; 85025

== ENCOUNTER → 2019-08-14 | Outpatient (CLI) | payer OTHER ==
[2019-08-14 07:52] LABS: BASOPHILS # (AUTO) 0.03 x10^3/uL (0-0.1); BASOPHILS % (AUTO) 1 % (0-1); EOSINOPHILS # (AUTO) 0.22 x10^3/uL (0-0.4); EOSINOPHILS % (AUTO) 5 % (1-7); LYMPHOCYTES # (AUTO) 1.94 x10^3/uL (1-3.4); LYMPHOCYTES % (AUTO) 41 % (22-44); MD NO; MEAN CORPUSCULAR HEMOGLOBIN 33.4 pg (27.0-34.8); MEAN CORPUSCULAR HGB CONC 32.9 g/dL (32.4-35.8); MEAN CORPUSCULAR VOLUME 101.6 fL (80-100); MEAN PLATELET VOLUME 7.8 fL (7.4-10.4); MONOCYTES # (AUTO) 0.28 x10^3/uL (0.2-0.8); MONOCYTES % (AUTO) 6 % (2-9); NEUTROPHILS # (AUTO) 2.23 x10^3/uL (1.8-6.8); NEUTROPHILS % (AUTO) 48 % (42-75); PLATELET COUNT 273 x10^3/uL (130-400); RED BLOOD COUNT 3.17 x10^6/uL (3.82-5.3); RED CELL DISTRIBUTION WIDTH 16.3 % (9.6-15.2)
[2019-08-14 07:59] LABS: CALCIUM 8.8 mg/dL (8.5-10.1)
[2019-08-14 08:05] LABS: % IRON SATURATION 37 % (20-55); ALANINE AMINOTRANSFERASE 21 U/L (12-78); ALBUMIN 3.7 g/dL (3.4-5.0); ANION GAP 6 mmol/L (5-15); CALCIUM 8.8 mg/dL (8.5-10.1); CHLORIDE 112 mmol/L (98-107); CREATININE 1.91 mg/dL (0.55-1.02); IRON LEVEL 98 mcg/dL (50-170); TOTAL IRON BINDING CAPACITY 265 mcg/dL (250-450)
[2019-08-14 08:08] LABS: ALKALINE PHOSPHATASE 44 U/L (45-117); BILIRUBIN,TOTAL 0.3 mg/dL (0.2-1.0); TOTAL PROTEIN 7.1 g/dL (6.4-8.2)
[2019-08-14 08:31] LABS: MICROSCOPIC NOT IND
[2019-08-14 08:53] LABS: CREATININE,URINE RANDOM 77.6 mg/dL
== END | disposition home or self-care (01) ==
LOC: LAB 07:24
PROVIDERS: ATTEND Nurse Practitioner Family
CPT/HCPCS: 36415; 80053; 80158; 81003; 82306; 82310; 82570; 83540; 83550; 83735; 83970; 84100; 84156; 84550; 85025

== ENCOUNTER 2019-09-11 07:18 | Outpatient (CLI) | payer OTHER | END 2019-09-11 23:59 | disposition home or self-care (01) | LOC: CFH 07:18 | PROVIDERS: ATTEND Internal Medicine | DX: Z12.31 Encounter for screening mammogram for malignant neoplasm of breast (principal) | CPT/HCPCS: 77067 ==

== ENCOUNTER → 2019-09-18 | Outpatient (CLI) | payer OTHER ==
[2019-09-18 08:02] LABS: ALANINE AMINOTRANSFERASE 18 U/L (12-78); ALBUMIN 3.6 g/dL (3.4-5.0); ANION GAP 7 mmol/L (5-15); CALCIUM 9.3 mg/dL (8.5-10.1); CHLORIDE 107 mmol/L (98-107); CREATININE 2.23 mg/dL (0.55-1.02)
[2019-09-18 08:04] LABS: ALKALINE PHOSPHATASE 48 U/L (45-117); BILIRUBIN,TOTAL 0.7 mg/dL (0.2-1.0); TOTAL PROTEIN 7.3 g/dL (6.4-8.2)
== END | disposition home or self-care (01) ==
LOC: LAB 07:00
PROVIDERS: ATTEND Internal Medicine
DX: M81.0 Age-related osteoporosis without current pathological fracture (principal)
CPT/HCPCS: 36415; 80053

== ENCOUNTER → 2019-10-02 | Outpatient (CLI) | payer OTHER ==
[2019-10-02 07:52] LABS: BASOPHILS # (AUTO) 0.03 x10^3/uL (0-0.1); BASOPHILS % (AUTO) 1 % (0-1); EOSINOPHILS % (AUTO) 4 % (1-7); LYMPHOCYTES % (AUTO) 36 % (22-44); MD NO; MEAN CORPUSCULAR HEMOGLOBIN 33.9 pg (27.0-34.8); MEAN CORPUSCULAR HGB CONC 32.7 g/dL (32.4-35.8); MEAN CORPUSCULAR VOLUME 103.6 fL (80-100); MEAN PLATELET VOLUME 7.5 fL (7.4-10.4); MONOCYTES # (AUTO) 0.41 x10^3/uL (0.2-0.8); MONOCYTES % (AUTO) 7 % (2-9); NEUTROPHILS # (AUTO) 3.03 x10^3/uL (1.8-6.8); NEUTROPHILS % (AUTO) 53 % (42-75); PLATELET COUNT 271 x10^3/uL (130-400); RED BLOOD COUNT 3.02 x10^6/uL (3.82-5.3); RED CELL DISTRIBUTION WIDTH 15.9 % (9.6-15.2)
[2019-10-02 08:00] LABS: ALBUMIN 3.6 g/dL (3.4-5.0); ANION GAP 8 mmol/L (5-15); CALCIUM 9.1 mg/dL (8.5-10.1); CHLORIDE 108 mmol/L (98-107)
== END | disposition home or self-care (01) ==
LOC: LAB 07:32
PROVIDERS: ATTEND Internal Medicine
DX: N18.4 Chronic kidney disease, stage 4 (severe) (principal); Z92.25 Personal history of immunosuppression therapy
CPT/HCPCS: 36415; 80069; 80158; 85025

== ENCOUNTER → 2019-10-24 | Outpatient (CLI) | payer OTHER ==
[2019-10-24 08:05] LABS: BASOPHILS # (AUTO) 0.03 x10^3/uL (0-0.1); BASOPHILS % (AUTO) 1 % (0-1); EOSINOPHILS # (AUTO) 0.14 x10^3/uL (0-0.4); EOSINOPHILS % (AUTO) 3 % (1-7); LYMPHOCYTES # (AUTO) 1.61 x10^3/uL (1-3.4); LYMPHOCYTES % (AUTO) 33 % (22-44); MD NO; MEAN CORPUSCULAR HEMOGLOBIN 33.9 pg (27.0-34.8); MEAN CORPUSCULAR HGB CONC 32.8 g/dL (32.4-35.8); MEAN CORPUSCULAR VOLUME 103.3 fL (80-100); MEAN PLATELET VOLUME 7.2 fL (7.4-10.4); MONOCYTES # (AUTO) 0.37 x10^3/uL (0.2-0.8); MONOCYTES % (AUTO) 7 % (2-9); NEUTROPHILS % (AUTO) 57 % (42-75); PLATELET COUNT 293 x10^3/uL (130-400); RED BLOOD COUNT 3.07 x10^6/uL (3.82-5.3); RED CELL DISTRIBUTION WIDTH 15.7 % (9.6-15.2)
[2019-10-24 08:09] LABS: MICROSCOPIC NOT IND
[2019-10-24 08:14] LABS: CALCIUM 10.5 mg/dL (8.5-10.1)
[2019-10-24 08:18] LABS: ANION GAP 7 mmol/L (5-15); CALCIUM 10.6 mg/dL (8.5-10.1); CHLORIDE 102 mmol/L (98-107)
== END | disposition home or self-care (01) ==
LOC: LAB 07:32
PROVIDERS: ATTEND Internal Medicine Nephrology
DX: I12.9 Hypertensive chronic kidney disease with stage 1 through stage 4 chronic kidney disease, or unspecified chronic kidney disease (principal); N18.4 Chronic kidney disease, stage 4 (severe); E55.9 Vitamin D deficiency, unspecified; N25.81 Secondary hyperparathyroidism of renal origin; D63.1 Anemia in chronic kidney disease; E78.00 Pure hypercholesterolemia, unspecified; E79.0 Hyperuricemia without signs of inflammatory arthritis and tophaceous disease; Z94.0 Kidney transplant status; Z79.899 Other long term (current) drug therapy
CPT/HCPCS: 36415; 80069; 80158; 81003; 82306; 82310; 82570; 83735; 83970; 84156; 84550; 85025

== ENCOUNTER → 2020-01-22 | Outpatient (CLI) | payer OTHER ==
[2020-01-22 07:50] LABS: MICROSCOPIC NOT IND
[2020-01-22 08:04] LABS: ALANINE AMINOTRANSFERASE 24 U/L (12-78); ALBUMIN 3.9 g/dL (3.4-5.0); ANION GAP 7 mmol/L (5-15); CALCIUM 9.3 mg/dL (8.5-10.1); CHLORIDE 103 mmol/L (98-107)
[2020-01-22 08:06] LABS: CREATININE,URINE RANDOM 41.2 mg/dL
[2020-01-22 08:07] LABS: BASOPHILS # (AUTO) 0.04 x10^3/uL (0-0.1); BASOPHILS % (AUTO) 1 % (0-1); EOSINOPHILS # (AUTO) 0.32 x10^3/uL (0-0.4); EOSINOPHILS % (AUTO) 6 % (1-7); LYMPHOCYTES # (AUTO) 2.19 x10^3/uL (1-3.4); LYMPHOCYTES % (AUTO) 41 % (22-44); MD NO; MEAN CORPUSCULAR HEMOGLOBIN 33.3 pg (27.0-34.8); MEAN CORPUSCULAR HGB CONC 32.5 g/dL (32.4-35.8); MEAN CORPUSCULAR VOLUME 102.5 fL (80-100); MEAN PLATELET VOLUME 7.9 fL (7.4-10.4); MONOCYTES # (AUTO) 0.42 x10^3/uL (0.2-0.8); MONOCYTES % (AUTO) 8 % (2-9); NEUTROPHILS # (AUTO) 2.38 x10^3/uL (1.8-6.8); NEUTROPHILS % (AUTO) 44 % (42-75); PLATELET COUNT 256 x10^3/uL (130-400); RED BLOOD COUNT 3.31 x10^6/uL (3.82-5.3); RED CELL DISTRIBUTION WIDTH 15.5 % (9.6-15.2)
[2020-01-22 08:08] LABS: % IRON SATURATION 27 % (20-55); ALKALINE PHOSPHATASE 53 U/L (45-117); BILIRUBIN,TOTAL 0.4 mg/dL (0.2-1.0); CREATININE 2.08 mg/dL (0.55-1.02); IRON LEVEL 76 mcg/dL (50-170); TOTAL IRON BINDING CAPACITY 279 mcg/dL (250-450); TOTAL PROTEIN 7.9 g/dL (6.4-8.2)
[2020-01-22 08:09] LABS: CALCIUM 9.3 mg/dL (8.5-10.1)
== END | disposition home or self-care (01) ==
LOC: LAB 07:15
PROVIDERS: ATTEND Nurse Practitioner Family
DX: I12.9 Hypertensive chronic kidney disease with stage 1 through stage 4 chronic kidney disease, or unspecified chronic kidney disease (principal); N18.4 Chronic kidney disease, stage 4 (severe); E55.9 Vitamin D deficiency, unspecified; D63.1 Anemia in chronic kidney disease; E78.00 Pure hypercholesterolemia, unspecified; E79.0 Hyperuricemia without signs of inflammatory arthritis and tophaceous disease; Z79.899 Other long term (current) drug therapy; Z94.0 Kidney transplant status
CPT/HCPCS: 36415; 80053; 80158; 81003; 82306; 82310; 82570; 82728; 83540; 83550; 83970; 84100; 84156; 85025

== ENCOUNTER → 2020-02-26 | Outpatient (CLI) | payer OTHER ==
[~2020-02-26] MED LIST changes: -WARF5TAB PO; +WARF5TAB2 PO
== END | disposition home or self-care (01) ==
LOC: CVU 07:26
PROVIDERS: ATTEND Internal Medicine Cardiovascular Disease
DX: I08.8 Other rheumatic multiple valve diseases (principal); I10 Essential (primary) hypertension; E78.5 Hyperlipidemia, unspecified; Z94.0 Kidney transplant status
CPT/HCPCS: 93306

== ENCOUNTER → 2020-03-12 | Outpatient (CLI) | payer OTHER ==
[2020-03-12 08:23] LABS: ALBUMIN 3.7 g/dL (3.4-5.0); ANION GAP 7 mmol/L (5-15); CALCIUM 9.7 mg/dL (8.5-10.1); CHLORIDE 105 mmol/L (98-107)
[2020-03-12 08:27] LABS: ALANINE AMINOTRANSFERASE 19 U/L (12-78); ALKALINE PHOSPHATASE 48 U/L (45-117); BILIRUBIN,TOTAL 0.4 mg/dL (0.2-1.0); CREATININE 2.39 mg/dL (0.55-1.02)
== END | disposition home or self-care (01) ==
LOC: LAB 07:59
PROVIDERS: ATTEND Internal Medicine
DX: M81.0 Age-related osteoporosis without current pathological fracture (principal)
CPT/HCPCS: 36415; 80053

== ENCOUNTER 2020-04-08 07:02 | Outpatient (CLI) | payer OTHER ==
[2020-04-08 07:54] LABS: BASOPHILS # (AUTO) 0.04 x10^3/uL (0-0.1); BASOPHILS % (AUTO) 1 % (0-1); EOSINOPHILS % (AUTO) 4 % (1-7); LYMPHOCYTES # (AUTO) 2.26 x10^3/uL (1-3.4); LYMPHOCYTES % (AUTO) 41 % (22-44); MD NO; MEAN CORPUSCULAR HEMOGLOBIN 32.3 pg (27.0-34.8); MEAN CORPUSCULAR HGB CONC 31.4 g/dL (32.4-35.8); MEAN CORPUSCULAR VOLUME 102.7 fL (80-100); MEAN PLATELET VOLUME 7.6 fL (7.4-10.4); MONOCYTES # (AUTO) 0.35 x10^3/uL (0.2-0.8); MONOCYTES % (AUTO) 6 % (2-9); NEUTROPHILS # (AUTO) 2.71 x10^3/uL (1.8-6.8); NEUTROPHILS % (AUTO) 49 % (42-75); PLATELET COUNT 298 x10^3/uL (130-400); RED BLOOD COUNT 3.18 x10^6/uL (3.82-5.3)
[2020-04-08 08:00] LABS: ALBUMIN 3.9 g/dL (3.4-5.0); ANION GAP 7 mmol/L (5-15); CALCIUM 8.8 mg/dL (8.5-10.1); CHLORIDE 106 mmol/L (98-107)
[2020-04-08 08:03] LABS: % IRON SATURATION 23 % (20-55); ALANINE AMINOTRANSFERASE 23 U/L (12-78); ALKALINE PHOSPHATASE 57 U/L (45-117); BILIRUBIN,TOTAL 0.4 mg/dL (0.2-1.0); CREATININE 2.22 mg/dL (0.55-1.02); IRON LEVEL 70 mcg/dL (50-170); TOTAL IRON BINDING CAPACITY 302 mcg/dL (250-450); TOTAL PROTEIN 7.4 g/dL (6.4-8.2)
[2020-04-08 08:06] LABS: CALCIUM 8.8 mg/dL (8.5-10.1)
[2020-04-08 08:17] LABS: MICROSCOPIC AUTO
[2020-04-08 08:25] LABS: CREATININE,URINE RANDOM 57.6 mg/dL
== END 2020-04-08 23:59 | disposition home or self-care (01) ==
LOC: LAB 07:02
PROVIDERS: ATTEND Internal Medicine Nephrology
DX: I12.9 Hypertensive chronic kidney disease with stage 1 through stage 4 chronic kidney disease, or unspecified chronic kidney disease (principal); N18.9 Chronic kidney disease, unspecified; E55.9 Vitamin D deficiency, unspecified; N25.81 Secondary hyperparathyroidism of renal origin; E78.00 Pure hypercholesterolemia, unspecified; E79.0 Hyperuricemia without signs of inflammatory arthritis and tophaceous disease; D63.1 Anemia in chronic kidney disease; Z94.0 Kidney transplant status; Z79.899 Other long term (current) drug therapy
CPT/HCPCS: 36415; 80053; 80158; 81001; 82306; 82310; 82570; 82728; 83036; 83540; 83550; 83735; 83970; 84100; 84156; 84550; 85025; 87086

== ENCOUNTER 2020-05-27 07:09 | Outpatient (CLI) | payer OTHER ==
[2020-05-27 08:03] LABS: HCT (SEDRATE) 31.7 % (34.6-47.8)
[2020-05-27 08:16] LABS: C-REACTIVE PROTEIN, QUANT 0.17 mg/dL (0.02-0.49)
[2020-05-27 08:25] LABS: CHOL/HDL RATIO 2.2
== END 2020-05-27 23:59 | disposition home or self-care (01) ==
LOC: LAB 07:09
PROVIDERS: ATTEND Internal Medicine
DX: E03.9 Hypothyroidism, unspecified (principal); E78.00 Pure hypercholesterolemia, unspecified; M25.50 Pain in unspecified joint; R10.11 Right upper quadrant pain
CPT/HCPCS: 36415; 80061; 84443; 84550; 85651; 86038; 86140; 86200; 86430

== ENCOUNTER → 2020-09-15 | Outpatient (CLI) | payer OTHER | END | disposition home or self-care (01) | LOC: CFH 07:06 | PROVIDERS: ATTEND Internal Medicine | DX: Z12.31 Encounter for screening mammogram for malignant neoplasm of breast (principal) | CPT/HCPCS: 77063; 77067 ==

== ENCOUNTER → 2020-09-23 | Outpatient (CLI) | payer OTHER ==
[2020-09-23 07:28] LABS: BASOPHILS % (AUTO) 1 % (0-1); EOSINOPHILS % (AUTO) 4 % (1-7); LYMPHOCYTES % (AUTO) 46 % (22-44); MEAN CORPUSCULAR HEMOGLOBIN 33.7 pg (27.0-34.8); MEAN CORPUSCULAR HGB CONC 33.5 g/dL (32.4-35.8); MEAN PLATELET VOLUME 7.3 fL (7.4-10.4); MONOCYTES % (AUTO) 7 % (2-9); NEUTROPHILS % (AUTO) 42 % (42-75); PLATELET COUNT 295 x10^3/uL (130-400); RED BLOOD COUNT 3.02 x10^6/uL (3.82-5.3); RED CELL DISTRIBUTION WIDTH 15.2 % (9.6-15.2)
[2020-09-23 07:38] LABS: CALCIUM 9.3 mg/dL (8.5-10.1); CHLORIDE 105 mmol/L (98-107); MICROSCOPIC AUTO
[2020-09-23 07:42] LABS: MD SCAN
[2020-09-23 07:43] LABS: ALBUMIN 3.8 g/dL (3.4-5.0); ANION GAP 5 mmol/L (5-15); CREATININE 2.27 mg/dL (0.55-1.02)
[2020-09-23 07:53] LABS: CREATININE,URINE RANDOM 78.5 mg/dL
== END | disposition home or self-care (01) ==
LOC: LAB 07:07
PROVIDERS: ATTEND Internal Medicine Nephrology
DX: I12.9 Hypertensive chronic kidney disease with stage 1 through stage 4 chronic kidney disease, or unspecified chronic kidney disease (principal); N18.4 Chronic kidney disease, stage 4 (severe); E55.9 Vitamin D deficiency, unspecified; N25.81 Secondary hyperparathyroidism of renal origin; D63.1 Anemia in chronic kidney disease; E78.00 Pure hypercholesterolemia, unspecified; E79.0 Hyperuricemia without signs of inflammatory arthritis and tophaceous disease; Z94.0 Kidney transplant status; Z79.899 Other long term (current) drug therapy
CPT/HCPCS: 36415; 80069; 80158; 81001; 82570; 83735; 84156; 84550; 85025; 87086

== ENCOUNTER → 2020-10-14 | Outpatient (CLI) | payer OTHER ==
[2020-10-14 07:53] LABS: ALBUMIN 3.8 g/dL (3.4-5.0); ANION GAP 10 mmol/L (5-15); CALCIUM 9.2 mg/dL (8.5-10.1); CHLORIDE 103 mmol/L (98-107)
[2020-10-14 07:55] LABS: ALANINE AMINOTRANSFERASE 25 U/L (12-78); ALKALINE PHOSPHATASE 59 U/L (45-117); BILIRUBIN,TOTAL 0.4 mg/dL (0.2-1.0); CREATININE 2.02 mg/dL (0.55-1.02); TOTAL PROTEIN 7.4 g/dL (6.4-8.2)
== END | disposition home or self-care (01) ==
LOC: LAB 07:19
PROVIDERS: ATTEND Internal Medicine
DX: M81.0 Age-related osteoporosis without current pathological fracture (principal)
CPT/HCPCS: 36415; 80053

== ENCOUNTER → 2020-11-26 | Outpatient (CLI) | payer OTHER ==
[2020-11-26 15:01] LABS: % IRON SATURATION 27 % (20-55); ALANINE AMINOTRANSFERASE 21 U/L (12-78); ALBUMIN 3.9 g/dL (3.4-5.0); ANION GAP 5 mmol/L (5-15); CALCIUM 9.4 mg/dL (8.5-10.1); CHLORIDE 106 mmol/L (98-107); CREATININE 2.07 mg/dL (0.55-1.02); IRON LEVEL 78 mcg/dL (50-170); TOTAL IRON BINDING CAPACITY 287 mcg/dL (250-450)
[2020-11-26 15:02] LABS: ABSOLUTE RETICS # 0.026 x10^6/uL (0.5-2.5); BASOPHILS % (AUTO) 1 % (0-1); EOSINOPHILS % (AUTO) 5 % (1-7); LYMPHOCYTES % (AUTO) 43 % (22-44); MEAN CORPUSCULAR HEMOGLOBIN 33.2 pg (27.0-34.8); MEAN CORPUSCULAR HGB CONC 33.2 g/dL (32.4-35.8); MEAN PLATELET VOLUME 8.2 fL (7.4-10.4); MONOCYTES % (AUTO) 6 % (2-9); NEUTROPHILS % (AUTO) 46 % (42-75); PLATELET COUNT 304 x10^3/uL (130-400); RED BLOOD COUNT 3.06 x10^6/uL (3.82-5.3); RED CELL DISTRIBUTION WIDTH 14.8 % (9.6-15.2); RETICULOCYTE COUNT % 0.84 % (0.5-1.5)
[2020-11-26 15:03] LABS: MD NO
[2020-11-26 15:06] LABS: HCT (SEDRATE) 30.5 % (34.6-47.8)
[2020-11-26 15:09] LABS: ALKALINE PHOSPHATASE 60 U/L (45-117); BILIRUBIN,TOTAL 0.3 mg/dL (0.2-1.0); FREE T4 (FREE THYROXINE) 0.86 ng/dL (0.76-1.46); TOTAL PROTEIN 7.6 g/dL (6.4-8.2)
== END | disposition home or self-care (01) ==
LOC: LAB 14:28
PROVIDERS: ATTEND Internal Medicine
DX: N18.4 Chronic kidney disease, stage 4 (severe) (principal); E79.0 Hyperuricemia without signs of inflammatory arthritis and tophaceous disease; D50.9 Iron deficiency anemia, unspecified; E03.9 Hypothyroidism, unspecified; M25.50 Pain in unspecified joint; R61 Generalized hyperhidrosis
CPT/HCPCS: 36415; 80053; 82670; 83001; 83002; 83540; 83550; 84439; 84443; 85025; 85045; 85651

== ENCOUNTER → 2021-02-17 | Outpatient (CLI) | payer OTHER ==
[2021-02-17 07:59] LABS: BASOPHILS % (AUTO) 1 % (0-1); EOSINOPHILS % (AUTO) 4 % (1-7); LYMPHOCYTES % (AUTO) 37 % (22-44); MEAN CORPUSCULAR HEMOGLOBIN 34.5 pg (27.0-34.8); MEAN CORPUSCULAR HGB CONC 33.9 g/dL (32.4-35.8); MEAN PLATELET VOLUME 8.4 fL (7.4-10.4); MONOCYTES % (AUTO) 8 % (2-9); NEUTROPHILS % (AUTO) 50 % (42-75); PLATELET COUNT 260 x10^3/uL (130-400); RED BLOOD COUNT 3.19 x10^6/uL (3.82-5.3); RED CELL DISTRIBUTION WIDTH 15.6 % (9.6-15.2)
[2021-02-17 08:02] LABS: CALCIUM 9.6 mg/dL (8.5-10.1)
[2021-02-17 08:07] LABS: ALANINE AMINOTRANSFERASE 22 U/L (12-78); ALBUMIN 3.7 g/dL (3.4-5.0); ANION GAP 7 mmol/L (5-15); CHLORIDE 106 mmol/L (98-107); CREATININE 2.24 mg/dL (0.55-1.02)
[2021-02-17 08:10] LABS: ALKALINE PHOSPHATASE 52 U/L (45-117); BILIRUBIN,TOTAL 0.4 mg/dL (0.2-1.0); CALCIUM 9.6 mg/dL (8.5-10.1); TOTAL PROTEIN 7.5 g/dL (6.4-8.2)
[2021-02-17 09:01] LABS: MICROSCOPIC AUTO
[2021-02-17 09:11] LABS: CREATININE,URINE RANDOM 78.5 mg/dL
== END | disposition home or self-care (01) ==
LOC: LAB 07:31
PROVIDERS: ATTEND Nurse Practitioner Gerontology
DX: I12.9 Hypertensive chronic kidney disease with stage 1 through stage 4 chronic kidney disease, or unspecified chronic kidney disease (principal); E55.9 Vitamin D deficiency, unspecified; N25.81 Secondary hyperparathyroidism of renal origin; N18.4 Chronic kidney disease, stage 4 (severe); E78.00 Pure hypercholesterolemia, unspecified; E79.0 Hyperuricemia without signs of inflammatory arthritis and tophaceous disease; D63.1 Anemia in chronic kidney disease; Z94.0 Kidney transplant status; Z79.899 Other long term (current) drug therapy
CPT/HCPCS: 36415; 80053; 80158; 81001; 82306; 82310; 82570; 83735; 83970; 84100; 84156; 84550; 85025; 87086

== ENCOUNTER 2021-05-19 07:03 | Outpatient (CLI) | payer OTHER ==
[2021-05-19 07:31] LABS: CHLORIDE 108 mmol/L (98-107)
[2021-05-19 07:46] LABS: ALANINE AMINOTRANSFERASE 18 U/L (12-78); ALBUMIN 3.6 g/dL (3.4-5.0); ALKALINE PHOSPHATASE 47 U/L (45-117); ANION GAP 7 mmol/L (5-15); BILIRUBIN,TOTAL 0.4 mg/dL (0.2-1.0); CALCIUM 9.1 mg/dL (8.5-10.1); CREATININE 2.08 mg/dL (0.55-1.02)
== END 2021-05-19 23:59 | disposition home or self-care (01) ==
LOC: LAB 07:03
PROVIDERS: ATTEND Internal Medicine
DX: M81.0 Age-related osteoporosis without current pathological fracture (principal)
CPT/HCPCS: 36415; 80053